=== PATIENT | female | born 1950 | race Hispanic/Latino ===

== ENCOUNTER 2022-02-03 01:33 | Observation (INO) | payer OTHER ==
[~2022-02-03] VITALS: Ht 152.4 cm; Wt 68.5 kg
[2022-02-03 02:55] LABS: BASOPHILS % (AUTO) 0.4 % (0.0-5.0); EOSINOPHILS % (AUTO) 1.1 % (0.0-8.0); HEMATOCRIT 38.5 % (36-48); LYMPHOCYTES % (AUTO) 19.7 % (21.0-51.0); MEAN CORPUSCULAR HEMOGLOBIN 26.5 pg (27.0-33.0); MEAN CORPUSCULAR HGB CONC 31.9 g/dL (32.0-36.0); MEAN CORPUSCULAR VOLUME 82.8 fL (79-99); MONOCYTES % (AUTO) 7.6 % (3.0-13.0); PLATELET COUNT (AUTO) 235 K/uL (130-400); RED BLOOD CELL COUNT(AUTO) 4.65 MIL/uL (4.00-5.50); RED CELL DISTRIBUTION WIDTH 13.4 % (11.0-15.5); WHITE BLOOD COUNT (AUTO) 11.5 K/uL (4.8-10.8)
[2022-02-03 03:14] LABS: ALBUMIN 3.7 g/dL (3.5-5.0); BILIRUBIN,TOTAL 0.5 mg/dL (0.2-1.0); CREATININE 0.8 mg/dL (0.5-1.5); POTASSIUM 3.7 mmol/L (3.5-5.1); TOTAL PROTEIN, SERUM 7.9 g/dL (6.0-8.3)
[2022-02-03 03:15] LABS: APPEARANCE,URINE Clear (CLEAR); BILIRUBIN,URINE Negative (NEGATIVE); COLOR,URINE Yellow (YELLOW); GLUCOSE, URINE (UA) Negative (NEGATIVE); KETONES,URINE Negative (NEGATIVE); LEUKOCYTE ESTERASE ,URINE Moderate (NEGATIVE); NITRATE,URINE Negative (NEGATIVE); OCCULT BLOOD,URINE Negative (NEGATIVE); PROTEIN,URINE Negative (NEGATIVE); UROBILINOGEN,URINE 0.2 mg/dL (0.2-1.0)
[2022-02-03] MEDS ORDERED: CLONIDINE HCL 0.1 MG TABLET ONE (03:57)
[2022-02-03] MEDS ORDERED: CLONIDINE HCL 0.1 MG TABLET PO ONE (04:00)
[2022-02-03] MEDS ORDERED: LINA290C PO (04:04)
[2022-02-03] MEDS ORDERED: ASPI-1197 PO (04:04)
[2022-02-03] MEDS ORDERED: CAPT25TA3 PO (04:04)
[2022-02-03] MEDS ORDERED: CLON0.1T PO (04:04)
[2022-02-03] MEDS ORDERED: SOLI5TAB6 PO (04:04)
[2022-02-03] MEDS ORDERED: MORPHINE 2 MG SYG IV PRN (04:30)
[2022-02-03] MEDS ORDERED: ONDANSETRON 4MG INJ IV PRN (04:30)
[2022-02-03] MEDS ORDERED: 0.9%NACL 1000ML 1,000 ML IV SCH (04:30)
[2022-02-03] MEDS ORDERED: MORPHINE 4 MG SYG IV PRN (04:30)
[2022-02-03 04:37] LABS: RBC,URINE 0-1 /HPF (0-1)
[2022-02-03 04:38] LABS: BACTERIA,URINE Rare /HPF (None Seen); SQUAMOUS EPITHELIAL CELL,UR Moderate /HPF (0-2)
[2022-02-03 04:48] LABS: INR 1.04 (0.85-1.15); PROTHROMBIN TIME 11.3 SEC (9.6-11.6)
[2022-02-03 04:49] LABS: PARTIAL THROMBOPLASTIN TIME 29.3 SEC (26.3-35.5)
[2022-02-03 04:54] LABS: MAGNESIUM 1.9 mg/dL (1.80-2.40); PHOSPHORUS 3.4 mg/dL (2.5-4.9)
[2022-02-03 08:50] VITALS: BP 176/86
[2022-02-03] MEDS ORDERED: PANTOPRAZOLE 40 MG/VIAL IVP SCH (09:00)
[2022-02-03] MEDS ORDERED: CLONIDINE HCL 0.1 MG TABLET PO SCH (09:00)
[2022-02-03 11:30] VITALS: BP 176/82
[2022-02-03 12:10] VITALS: BP 158/82
[2022-02-03] MEDS ORDERED: HYDROCODONE/ACETAMINOPHEN 5/325 MG TAB PO PRN ×2 (12:30)
[2022-02-03] MEDS ORDERED: ACET1TAB25 PO (12:38)
[2022-02-03 15:25] VITALS: BP 164/74
== END 2022-02-03 17:50 | disposition home or self-care (01) ==
LOC: EDH 01:33 → EDHIP 04:10 → INTOOBSV 04:10 → 3CH 09:30
PROVIDERS: ADMIT Internal Medicine; ATTEND Internal Medicine
DX: S42.251A Displaced fracture of greater tuberosity of right humerus, initial encounter for closed fracture (principal); Z20.822 Contact with and (suspected) exposure to COVID-19; S43.004A Unspecified dislocation of right shoulder joint, initial encounter; I10 Essential (primary) hypertension; E78.5 Hyperlipidemia, unspecified; E11.9 Type 2 diabetes mellitus without complications; E78.00 Pure hypercholesterolemia, unspecified; N30.00 Acute cystitis without hematuria; Z90.49 Acquired absence of other specified parts of digestive tract; Z79.899 Other long term (current) drug therapy; Z98.890 Other specified postprocedural states; Z98.49 Cataract extraction status, unspecified eye; Z79.82 Long term (current) use of aspirin; W18.30XA Fall on same level, unspecified, initial encounter; Y92.89 Other specified places as the place of occurrence of the external cause; Y93.89 Activity, other specified; Y99.8 Other external cause status
CPT/HCPCS: 36415; 71045; 73030; 80053; 81001; 82550; 83735; 84100; 84484; 85025; 85610; 85730; 86850; 86900; 86901; 87088; 87635; 93005; 96361; 96374; 96375; 99285; C9113; C9803; G0378 ×2

== ENCOUNTER 2022-12-08 16:50 | Emergency (ER) | payer OTHER ==
[~2022-12-08] VITALS: Ht 152.4 cm; Wt 68.9 kg
[~2022-12-08 16:50] MED LIST: ACET-2079 PO; ASPI-1197 PO; CAPT25TA3 PO; CLON0.1T PO; LINA290C PO; SOLI5TAB6 PO
[2022-12-08 17:43] VITALS: BP 210/92
[2022-12-08] MEDS ORDERED: IBUP-1493 PO (20:19)
== END 2022-12-08 21:14 | disposition home or self-care (01) ==
LOC: EDH 16:50
DX: S42.202A Unspecified fracture of upper end of left humerus, initial encounter for closed fracture (principal); E11.9 Type 2 diabetes mellitus without complications; E78.00 Pure hypercholesterolemia, unspecified; Z90.49 Acquired absence of other specified parts of digestive tract; Z98.890 Other specified postprocedural states; Z79.899 Other long term (current) drug therapy; Z79.82 Long term (current) use of aspirin; W01.0XXA Fall on same level from slipping, tripping and stumbling without subsequent striking against object, initial encounter; Y93.89 Activity, other specified; Y92.89 Other specified places as the place of occurrence of the external cause; Y99.8 Other external cause status
CPT/HCPCS: 73060